=== PATIENT | male | born 1950 | race African-American/Black ===

== ENCOUNTER 2018-11-14 08:32 | Inpatient (IN) ==
[~2018-11-14 08:32] MED LIST: CEFUROXIME INJ 1,500 MG in SYRINGE 1 EACH IV ONE; DEXTROSE 50% 25 GM/50 ML VIAL IV PRN; GLUCAGON 1 MG VIAL IM PRN; SODIUM CHLORIDE 0.9% 1,000 ML IV SCH; ZALEPLON 5 MG CAPSULE PO PRN
[2018-11-14] MEDS ORDERED: CHLORHEXIDINE 0.12% ORAL RINSE 60 ML BOTTLE SWISH/SPIT SCH (09:00)
[2018-11-14] MEDS ORDERED: CHLORHEXIDINE 4% SOLN 118 ML BOTTLE TOP SCH (09:00)
[2018-11-14 09:48] LABS: Basophils % 0.6 % (0.0-0.8); Eosinophils # 0.2 10*3/uL (0.0-0.87); Eosinophils % 4.3 % (0.00-10.9); Hematocrit 38.4 VOL% (42.0-52.0); Hemoglobin 11.9 GM/DL (14.0-18.0); Immature Granulocytes % 0.2 %; Immature Granulocytes Absolute 0.01 #; Lymphocytes # 1.4 10*3/uL (1.4-4.0); Lymphocytes % 26.7 % (21.2-54.2); Mean Corpuscular Volume 73.7 FL (87-102); Mean Platelet Volume 11.2 FL (9.6-12.0); Monocytes % 10.6 % (1.7-12.7); Neutrophils % 57.6 % (38.7-73.9); Platelet Count 224 T/CUMM (130-400); Red Blood Count 5.21 MC/CUMM (3.8-5.5); Red Cell Distribution Width 15.9 % (9.3-17.3); White Blood Count 5.4 T/CUMM (4-12)
[2018-11-14 10:05] LABS: Albumin 3.7 G/DL (3.4-5.0); Bilirubin,Total 0.4 MG/DL (0.2-1.0); Calcium 8.9 MG/DL (8.5-10.1); Osmolality,Calculated 285.3 MOS/KG (273-304); Total Protein 7.5 G/DL (6.4-8.3)
[2018-11-14 11:07] LABS: ABG Base Excess 0.6 MMOL/L (-2.5-2.5); ABG Oxygen Saturation 96.3 % (95-100); ABG PCO2 34.3 MM HG (35-48); ABG PH 7.462 (7.35-7.45); ABG PO2 93.8 MM HG (80-95)
[2018-11-14] MEDS: CHLORHEXIDINE 0.12% ORAL RINSE 60 ML BOTTLE SWISH/SPIT SCH ×2 (14:48→21:15)
[2018-11-14] MEDS: CHLORHEXIDINE 4% SOLN 118 ML BOTTLE TOP SCH ×2 (14:48→21:15)
[2018-11-15] MEDS ORDERED: PAPAVERINE 60 MG/2 ML VIAL ONE (04:24)
[2018-11-15] MEDS ORDERED: VANCOMYCIN 1,000 MG VIAL ONE (04:24)
[2018-11-15] MEDS: CHLORHEXIDINE 4% SOLN 118 ML BOTTLE TOP SCH ×2 (04:37→09:41)
[2018-11-15] MEDS ORDERED: SODIUM CHLORIDE 0.9% 1,000 ML IV SCH (05:00)
[2018-11-15] MEDS ORDERED: DOBUTamine 0 MG/0 ML PREMIX IV ONE (05:45)
[2018-11-15] MEDS ORDERED: HEPARIN/NACL 0.9% 2 UNITS/ML 500 ML IV ONE (05:45)
[2018-11-15] MEDS ORDERED: ALBUMIN 5% 12.5 GM/250 ML VIAL IV ONE ×2 (05:45→08:56)
[2018-11-15] MEDS ORDERED: EPINEPHrine 1 MG/ML VIAL ONE (05:46)
[2018-11-15] MEDS ORDERED: MIDAZOLAM 10 MG/2 ML VIAL ONE (05:46)
[2018-11-15] MEDS ORDERED: LORazepam 1 MG TABLET PO ONE (06:00)
[2018-11-15] MEDS ORDERED: ePHEDrine 50 MG/ML AMP ONE (06:15)
[2018-11-15] MEDS ORDERED: FAMOTIDINE 20 MG/2 ML VIAL IV ONE (06:46)
[2018-11-15] MEDS ORDERED: diphenhydrAMINE 50 MG/1 ML VIAL ONE (06:46)
[2018-11-15 07:35] LABS: ABG Base Excess -1.3 MMOL/L (-2.5-2.5); ABG HCO3 24.3 MMOL/L (20-26); ABG PCO2 44.3 MM HG (35-48); ABG PH 7.357 (7.35-7.45); ABG PO2 184.1 MM HG (80-95); ABG TCO2 25.7 MMOL/L (23-27); Glucose Heart Surgery 147 MG/DL (74-106); Hemoglobin Heart Surgery 12.3 G/DL (14.0-18.0); Ionized Calcium Arterial 1.18 MMOL/L (1.21-1.46); PCO2 Patient Temp Arterial 44.3 MMHG; PH Patient Temp Arterial 7.357; PO2 Patient Temp Arterial 184.1 MM HG; Patient Temperature 37 CELCIUS; Potassium Heart/CVR 3.6 MMOL/L (3.5-5.1); Sodium Heart/CVR 139 MMOL/L (135-145)
[2018-11-15 08:04] LABS: Apearance,Urine CLEAR (Clear); Bilirubin,Urine Negative (Negative); Blood, Urine Small mg/dL (Negative); Glucose,Urine (UA) Negative (Negative); Ketones,Urine Negative (Negative); Mucus,Urine Occasional /LPF (Occasional); Nitrite,Urine Negative (Negative); Protein,Urine Negative; RBC,Urine 1 /HPF (0-4); Urine Color Yellow (Yellow); Urine Specific Gravity 1.015 (1.001-1.035); Urine Urobilinogen < 2.0 EU/DL (0.2-1.0)
[2018-11-15] MEDS ORDERED: PHENYLEPHRINE DRIP 40 MG/250 ML PREMIX IV ONE (08:56)
[2018-11-15] MEDS ORDERED: POTASSIUM CHLORIDE RIDER 100 ML IV ONE ×2 (08:56→11:30)
[2018-11-15 09:39] LABS: Hemoglobin Heart Surgery 8.6 G/DL (14.0-18.0); PCO2 Patient Temp Venous 34.8 MM HG; PH Patient Temp Venous 7.442; PO2 Patient Temp Venous 44.9 MM HG; Potassium Heart/CVR 3.7 MMOL/L (3.5-5.1); VBG Base Excess -0.8 MEQ/L (0-4); VBG HCO3 23.9 MEQ/L (24-28); VBG Oxygen Saturation 81.3 %; VBG PCO2 39.7 MMHG (41-51); VBG PH 7.398; VBG PO2 55.3 MMHG (17-40)
[2018-11-15] MEDS: CEFUROXIME INJ 1,500 MG in SYRINGE 1 EACH IV ONE ×2 (09:41→13:15)
[2018-11-15] MEDS: CHLORHEXIDINE 0.12% ORAL RINSE 60 ML BOTTLE SWISH/SPIT SCH (09:41)
[2018-11-15 10:09] LABS: Hemoglobin Heart Surgery 8.6 G/DL (14.0-18.0); PCO2 Patient Temp Venous 31.2 MM HG; PH Patient Temp Venous 7.497; PO2 Patient Temp Venous 45.7 MM HG; Potassium Heart/CVR 3.8 MMOL/L (3.5-5.1); VBG Base Excess 0.5 MEQ/L (0-4); VBG HCO3 24.3 MEQ/L (24-28); VBG Oxygen Saturation 84.6 %; VBG PCO2 35.6 MMHG (41-51); VBG PH 7.452; VBG PO2 56.3 MMHG (17-40)
[2018-11-15 10:39] LABS: Hemoglobin Heart Surgery 9.2 G/DL (14.0-18.0); PH Patient Temp Venous 7.475; PO2 Patient Temp Venous 44.4 MM HG; Potassium Heart/CVR 3.9 MMOL/L (3.5-5.1); VBG Base Excess -1.8 MEQ/L (0-4); VBG HCO3 22.4 MEQ/L (24-28); VBG Oxygen Saturation 85.6 %; VBG PCO2 35.7 MMHG (41-51); VBG PH 7.416; VBG PO2 58.6 MMHG (17-40)
[2018-11-15 11:27] LABS: ABG Base Excess -1.5 MMOL/L (-2.5-2.5); ABG HCO3 23.1 MMOL/L (20-26); ABG Oxygen Saturation 98.2 % (95-100); ABG PCO2 39.8 MM HG (35-48); ABG PH 7.378 (7.35-7.45); ABG TCO2 21.7 MMOL/L (23-27); Glucose Heart Surgery 284 MG/DL (74-106); Hematocrit Heart Surgery 26.8 PERCENT (42-52); Hemoglobin Heart Surgery 8.6 G/DL (14.0-18.0); Ionized Calcium Arterial 1.14 MMOL/L (1.21-1.46); PCO2 Patient Temp Arterial 39.8 MMHG; PH Patient Temp Arterial 7.378; Patient Temperature 37 CELCIUS; Potassium Heart/CVR 3.8 MMOL/L (3.5-5.1); Sodium Heart/CVR 138 MMOL/L (135-145)
[2018-11-15] MEDS ORDERED: DEXTROSE 5% KCL 20 MEQ 20 MEQ/1,000 ML BAG IV ONE (11:29)
[2018-11-15] MEDS ORDERED: SODIUM BICARBONATE 50 MEQ/50 ML VIAL IV ONE (11:29)
[2018-11-15] MEDS ORDERED: MANNITOL 100 GM/500 ML BAG IV ONE (11:29)
[2018-11-15] MEDS ORDERED: MAGNESIUM SULFATE 5 GM/10 ML VIAL IV ONE (11:30)
[2018-11-15] MEDS ORDERED: HEPARIN 10,000 UNIT/10 ML VIAL ONE ×2 (11:30→12:35)
[2018-11-15] MEDS ORDERED: ALBUMIN 25% 25 GM/100 ML VIAL IV ONE (11:30)
[2018-11-15] MEDS ORDERED: FUROSEMIDE 20 MG/2 ML VIAL ONE (11:30)
[2018-11-15] MEDS ORDERED: methylPREDNISolone SOD SUC 1,000 MG/8 ML VIAL ONE (11:30)
[2018-11-15] MEDS ORDERED: PROTAMINE SULFATE 250 MG/25 ML VIAL IV ONE (11:30)
[2018-11-15] MEDS ORDERED: PROTAMINE SULFATE 50 MG/5 ML VIAL IV ONE ×3 (12:21→21:12)
[2018-11-15] MEDS ORDERED: CALCIUM CHLORIDE 1,000 MG/10 ML SYRINGE IV PRN (12:27)
[2018-11-15] MEDS ORDERED: MORPHINE 10 MG/1 ML VIAL IV PRN (12:27)
[2018-11-15] MEDS ORDERED: MAGNESIUM SULF RIDER 4 GM in PREMIX 1 EACH IV PRN (12:27)
[2018-11-15] MEDS ORDERED: MAGNESIUM SULF RIDER 2 GM in PREMIX 1 EACH IV PRN (12:27)
[2018-11-15] MEDS ORDERED: NITROPRUSSIDE 100 MG in DEXTROSE 5% 250 ML IV PRN (12:27)
[2018-11-15] MEDS ORDERED: ACETAMINOPHEN 650 MG SUPP RECTAL PRN (12:27)
[2018-11-15] MEDS ORDERED: PHENYLEPHRINE DRIP 40 MG/250 ML PREMIX IV PRN (12:27)
[2018-11-15] MEDS ORDERED: VECURONIUM 10 MG VIAL IV PRN ×2 (12:27)
[2018-11-15] MEDS ORDERED: DEXTROSE 50% 25 GM/50 ML VIAL IV PRN ×2 (12:27)
[2018-11-15] MEDS ORDERED: INSULIN REGULAR 100 UNIT/ML IV ONE (12:27)
[2018-11-15] MEDS ORDERED: MIDAZOLAM 10 MG/2 ML VIAL IV PRN (12:27)
[2018-11-15] MEDS ORDERED: ONDANSETRON 4 MG/2 ML VIAL IV PRN (12:27)
[2018-11-15] MEDS ORDERED: MIDAZOLAM 2 MG/2 ML VIAL IV PRN (12:27)
[2018-11-15] MEDS ORDERED: SODIUM CHLORIDE 0.45% 1,000 ML IV SCH ×2 (12:30)
[2018-11-15] MEDS ORDERED: CALCIUM CHLORIDE 1,000 MG/10 ML VIAL IV ONE (12:35)
[2018-11-15] MEDS ORDERED: SEVOFLURANE 1 UNIT/15 MINUTE INH ONE (12:35)
[2018-11-15] MEDS ORDERED: ESMOLOL 100 MG/10 ML VIAL IV ONE (12:36)
[2018-11-15] MEDS ORDERED: LACTATED RINGERS 1,000 ML IV ONE (12:36)
[2018-11-15] MEDS ORDERED: NITROGLYCERIN DRIP 50 MG/250 ML BOTTLE IV ONE (12:36)
[2018-11-15] MEDS ORDERED: SODIUM CHLORIDE 0.9% 250 ML IV ONE (12:36)
[2018-11-15] MEDS ORDERED: METOPROLOL TARTRATE 5 MG/5 ML VIAL IV ONE (12:36)
[2018-11-15] MEDS ORDERED: ALBUTEROL INHALER 8 GM INH ONE (12:36)
[2018-11-15] MEDS ORDERED: SODIUM CHLORIDE 0.9% 1,000 ML IV ONE (12:36)
[2018-11-15] MEDS ORDERED: PHENYLEPHRINE 10 MG/1 ML VIAL IV ONE (12:36)
[2018-11-15] MEDS ORDERED: AMINOCAPROIC ACID 5,000 MG/20 ML VIAL ONE (12:36)
[2018-11-15 13:17] LABS: ABG Base Excess -0.9 MMOL/L (-2.5-2.5); ABG HCO3 23.6 MMOL/L (20-26); ABG PCO2 43.4 MM HG (35-48); ABG PH 7.361 (7.35-7.45); ABG PO2 84.8 MM HG (80-95); ABG TCO2 22.6 MMOL/L (23-27); Glucose Heart Surgery 238 MG/DL (74-106); Hematocrit Heart Surgery 28.9 PERCENT (42-52); Hemoglobin Heart Surgery 9.3 G/DL (14.0-18.0); Potassium Heart/CVR 3.3 MMOL/L (3.5-5.1)
[2018-11-15 13:24] LABS: Basophils % 0.2 % (0.0-0.8); Eosinophils % 0.7 % (0.00-10.9); Hematocrit 29.1 VOL% (42.0-52.0); Immature Granulocytes % 0.5 %; Immature Granulocytes Absolute 0.03 #; Lymphocytes # 0.5 10*3/uL (1.4-4.0); Lymphocytes % 9.4 % (21.2-54.2); Mean Corpuscular HGB Conc 30.9 GM/DL (32-36); Mean Corpuscular Volume 72.8 FL (87-102); Mean Platelet Volume 10.7 FL (9.6-12.0); Neutrophils % 83.2 % (38.7-73.9); Platelet Count 174 T/CUMM (130-400); Red Cell Distribution Width 15.7 % (9.3-17.3); White Blood Count 5.6 T/CUMM (4-12)
[2018-11-15 13:37] LABS: CKMB % 4.8 %
[2018-11-15 13:39] LABS: INR 1.1; Partial Thromboplastin Time 25.2 SECS (0-40)
[2018-11-15 13:42] LABS: Albumin 3.6 G/DL (3.4-5.0); Bilirubin,Total 0.9 MG/DL (0.2-1.0); Calcium 9.2 MG/DL (8.5-10.1); Total Protein 6.6 G/DL (6.4-8.3)
[2018-11-15 13:45] LABS: Troponin I 4.3 NG/ML (0.00-0.045)
[2018-11-15 13:48] LABS: Band Neutrophils 1 % (0-10); Lymphocytes 15 % (20-55); Segmented Neutrophils 78 % (50-85); Total Cells Counted 100
[2018-11-15 13:49] LABS: Anisocytosis 1+; Elliptocytes Few; Microcytosis 1+
[2018-11-15 13:50] LABS: Platelet Estimate Normal; Poikilocytosis Slight; Schistocytes Slight
[2018-11-15] MEDS: KETOROLAC 30 MG/1 ML VIAL IV SCH ×3 (13:52→23:54)
[2018-11-15] MEDS: POTASSIUM CHLORIDE RIDER 20 MEQ in PREMIX 1 EACH IV PRN ×6 (13:57→22:43)
[2018-11-15] MEDS: INSULIN REGULAR DRIP 100 ML IV SCH ×2 (14:01→23:26)
[2018-11-15] MEDS: LACTATED RINGERS 1,000 ML IV PRN ×3 (14:22→17:10)
[2018-11-15 14:54] LABS: ABG HCO3 23.6 MMOL/L (20-26); ABG Oxygen Saturation 98.1 % (95-100); ABG PCO2 44.4 MM HG (35-48); ABG PH 7.353 (7.35-7.45); ABG TCO2 22.4 MMOL/L (23-27); Glucose Heart Surgery 233 MG/DL (74-106); Hematocrit Heart Surgery 32.1 PERCENT (42-52); Hemoglobin Heart Surgery 10.4 G/DL (14.0-18.0); Potassium Heart/CVR 3.7 MMOL/L (3.5-5.1)
[2018-11-15 16:12] LABS: ABG Base Excess -2.1 MMOL/L (-2.5-2.5); ABG HCO3 22.4 MMOL/L (20-26); ABG Oxygen Saturation 96.3 % (95-100); ABG PH 7.399 (7.35-7.45); ABG PO2 99.8 MM HG (80-95); ABG TCO2 23.5 MMOL/L (23-27); Glucose Heart Surgery 193 MG/DL (74-106); Hemoglobin Heart Surgery 10.8 G/DL (14.0-18.0); Potassium Heart/CVR 3.8 MMOL/L (3.5-5.1)
[2018-11-15] MEDS: ALBUMIN 5% 12.5 GM in PREMIX 1 EACH IV PRN ×4 (16:19→19:51)
[2018-11-15] MEDS: MORPHINE 4 MG/1 ML VIAL IV PRN (16:27)
[2018-11-15 18:09] LABS: ABG Base Excess -3.5 MMOL/L (-2.5-2.5); ABG HCO3 21.2 MMOL/L (20-26); ABG Oxygen Saturation 95.2 % (95-100); ABG PCO2 36.9 MM HG (35-48); ABG PH 7.377 (7.35-7.45); ABG PO2 90.3 MM HG (80-95); ABG TCO2 22.3 MMOL/L (23-27); Glucose Heart Surgery 168 MG/DL (74-106); Hemoglobin Heart Surgery 10.1 G/DL (14.0-18.0)
[2018-11-15] MEDS: INSULIN REGULAR 100 UNIT/ML IV PRN ×2 (19:21→21:28)
[2018-11-15] MEDS ORDERED: CEFUROXIME INJ 1,500 MG in SYRINGE 1 EACH IV SCH (20:24)
[2018-11-15] MEDS: LACTATED RINGERS 250 ML IV PRN ×2 (20:27→22:37)
[2018-11-15] MEDS ORDERED: CHLORHEXIDINE 0.12% ORAL RINSE 60 ML BOTTLE SWISH/SPIT SCH (21:00)
[2018-11-15 21:19] LABS: ABG Base Excess -3.6 MMOL/L (-2.5-2.5); ABG HCO3 21.4 MMOL/L (20-26); ABG Oxygen Saturation 96.6 % (95-100); ABG PCO2 36.1 MM HG (35-48); ABG PH 7.375 (7.35-7.45); ABG PO2 83.4 MM HG (80-95); ABG TCO2 19.4 MMOL/L (23-27); Glucose Heart Surgery 165 MG/DL (74-106); Hematocrit Heart Surgery 28.8 PERCENT (42-52); Hemoglobin Heart Surgery 9.3 G/DL (14.0-18.0); Potassium Heart/CVR 3.8 MMOL/L (3.5-5.1)
[2018-11-15 22:10] LABS: CKMB % 2.8 %
[2018-11-15 22:11] LABS: Troponin I 3.32 NG/ML (0.00-0.045)
[2018-11-15] MEDS: ALBUTEROL/IPRATROPIUM 3 ML NEB RESP TX SCH (22:27)
[2018-11-15 22:29] LABS: ABG Base Excess -2.9 MMOL/L (-2.5-2.5); ABG HCO3 21.9 MMOL/L (20-26); ABG Oxygen Saturation 96.7 % (95-100); ABG PCO2 35.8 MM HG (35-48); ABG PH 7.388 (7.35-7.45); ABG PO2 82.8 MM HG (80-95); ABG TCO2 19.8 MMOL/L (23-27); Glucose Heart Surgery 151 MG/DL (74-106); Hematocrit Heart Surgery 29.4 PERCENT (42-52); Hemoglobin Heart Surgery 9.5 G/DL (14.0-18.0); Potassium Heart/CVR 3.8 MMOL/L (3.5-5.1)
[2018-11-15 23:11] LABS: ABG Base Excess -2.1 MMOL/L (-2.5-2.5); ABG HCO3 22.7 MMOL/L (20-26); ABG Oxygen Saturation 97.2 % (95-100); ABG PCO2 37.2 MM HG (35-48); ABG PO2 88.6 MM HG (80-95); ABG TCO2 20.4 MMOL/L (23-27); Glucose Heart Surgery 137 MG/DL (74-106); Hematocrit Heart Surgery 31.4 PERCENT (42-52); Hemoglobin Heart Surgery 10.2 G/DL (14.0-18.0); Potassium Heart/CVR 4.1 MMOL/L (3.5-5.1)
[2018-11-15] MEDS: POTASSIUM CHLORIDE RIDER 10 MEQ in PREMIX 1 EACH IV PRN (23:19)
[2018-11-16] MEDS ORDERED: FUROSEMIDE 40 MG/4 ML VIAL IV ONE
[2018-11-16 00:34] LABS: ABG Base Excess -1.4 MMOL/L (-2.5-2.5); ABG HCO3 23.2 MMOL/L (20-26); ABG Oxygen Saturation 96.5 % (95-100); ABG PCO2 36.9 MM HG (35-48); ABG PH 7.403 (7.35-7.45); ABG PO2 81.9 MM HG (80-95); ABG TCO2 20.8 MMOL/L (23-27); Glucose Heart Surgery 109 MG/DL (74-106); Hematocrit Heart Surgery 31.7 PERCENT (42-52); Hemoglobin Heart Surgery 10.3 G/DL (14.0-18.0); Potassium Heart/CVR 3.8 MMOL/L (3.5-5.1)
[2018-11-16 01:43] LABS: ABG Base Excess -1.7 MMOL/L (-2.5-2.5); ABG Oxygen Saturation 96.2 % (95-100); ABG PCO2 36.5 MM HG (35-48); ABG PH 7.401 (7.35-7.45); ABG PO2 79.1 MM HG (80-95); ABG TCO2 20.5 MMOL/L (23-27); Glucose Heart Surgery 101 MG/DL (74-106); Hematocrit Heart Surgery 32.2 PERCENT (42-52); Hemoglobin Heart Surgery 10.4 G/DL (14.0-18.0); Potassium Heart/CVR 3.8 MMOL/L (3.5-5.1)
[2018-11-16] MEDS: POTASSIUM CHLORIDE RIDER 10 MEQ in PREMIX 1 EACH IV PRN ×2 (02:05→02:37)
[2018-11-16] MEDS: POTASSIUM CHLORIDE RIDER 20 MEQ in PREMIX 1 EACH IV PRN ×3 (02:07→06:19)
[2018-11-16 04:05] LABS: ABG Base Excess 0.3 MMOL/L (-2.5-2.5); ABG HCO3 24.7 MMOL/L (20-26); ABG Oxygen Saturation 96.9 % (95-100); ABG PCO2 38.2 MM HG (35-48); ABG PH 7.417 (7.35-7.45); ABG PO2 83.6 MM HG (80-95); ABG TCO2 22.2 MMOL/L (23-27); Glucose Heart Surgery 93 MG/DL (74-106); Hematocrit Heart Surgery 32.3 PERCENT (42-52); Hemoglobin Heart Surgery 10.5 G/DL (14.0-18.0); Potassium Heart/CVR 4.1 MMOL/L (3.5-5.1)
[2018-11-16 04:14] LABS: Basophils % 0.2 % (0.0-0.8); Hematocrit 31.8 VOL% (42.0-52.0); Hemoglobin 10.1 GM/DL (14.0-18.0); Immature Granulocytes % 0.5 %; Immature Granulocytes Absolute 0.05 #; Lymphocytes # 0.5 10*3/uL (1.4-4.0); Lymphocytes % 4.9 % (21.2-54.2); Mean Corpuscular HGB Conc 31.8 GM/DL (32-36); Mean Corpuscular Volume 73.6 FL (87-102); Mean Platelet Volume 10.5 FL (9.6-12.0); Monocytes % 7.2 % (1.7-12.7); Neutrophils % 87.2 % (38.7-73.9); Platelet Count 157 T/CUMM (130-400); Red Blood Count 4.32 MC/CUMM (3.8-5.5); Red Cell Distribution Width 16.4 % (9.3-17.3); White Blood Count 9.4 T/CUMM (4-12)
[2018-11-16 04:34] LABS: CKMB % 1.9 %
[2018-11-16 04:41] LABS: Troponin I 2.82 NG/ML (0.00-0.045)
[2018-11-16 04:44] LABS: Albumin 3.8 G/DL (3.4-5.0); Bilirubin,Direct 0.14 MG/DL (0.0-0.20); Bilirubin,Total 0.6 MG/DL (0.2-1.0); Calcium 8.7 MG/DL (8.5-10.1); Lymphocytes 11 % (20-55); Nucleated Red Blood Cells 1 (0-5); Platelet Estimate Decreased; Polychromasia Few; Segmented Neutrophils 85 % (50-85); Total Cells Counted 100
[2018-11-16 04:45] LABS: Hypochromasia Slight
[2018-11-16] MEDS: KETOROLAC 30 MG/1 ML VIAL IV SCH ×4 (06:06→18:55)
[2018-11-16] MEDS: ALBUTEROL/IPRATROPIUM 3 ML NEB RESP TX SCH ×2 (07:30)
[2018-11-16] MEDS: MORPHINE 4 MG/1 ML VIAL IV PRN (07:55)
[2018-11-16] MEDS ORDERED: ALUMINUM/MAGNES/SIMETH MAX STR 30 ML UDCUP PO PRN (08:05)
[2018-11-16] MEDS ORDERED: DEXTROSE 50% 25 GM/50 ML VIAL IV PRN ×2 (08:05)
[2018-11-16] MEDS ORDERED: MAGNESIUM SULF RIDER 2 GM in PREMIX 1 EACH IV PRN (08:05)
[2018-11-16] MEDS ORDERED: ACETAMINOPHEN 325 MG TABLET PO PRN (08:05)
[2018-11-16] MEDS ORDERED: MAGNESIUM SULF RIDER 4 GM in PREMIX 1 EACH IV PRN (08:05)
[2018-11-16] MEDS ORDERED: MAGNESIUM HYDROXIDE SUSP 30 ML UDCUP PO PRN (08:05)
[2018-11-16] MEDS ORDERED: MORPHINE 4 MG/1 ML VIAL IV PRN (08:05)
[2018-11-16] MEDS ORDERED: GLUCAGON 1 MG VIAL IM PRN ×2 (08:05)
[2018-11-16] MEDS: ATORVASTATIN 20 MG TABLET PO SCH (08:36)
[2018-11-16] MEDS: DOCUSATE SODIUM 100 MG CAPSULE PO SCH (08:36)
[2018-11-16] MEDS: amLODIPine 10 MG TABLET PO SCH (08:36)
[2018-11-16] MEDS: FERROUS SULFATE 325 MG TABLET PO SCH (08:37)
[2018-11-16] MEDS: hydroCHLOROthiazide 12.5 MG CAPSULE PO SCH (08:37)
[2018-11-16] MEDS: PANTOPRAZOLE 40 MG TABLET PO SCH (08:37)
[2018-11-16] MEDS: metFORMIN 500 MG TABLET PO SCH ×2 (08:37→20:42)
[2018-11-16] MEDS: GLIMEPIRIDE 4 MG TABLET PO SCH (08:37)
[2018-11-16] MEDS: ASPIRIN EC 81 MG TABLET PO SCH (08:37)
[2018-11-16] MEDS: LISINOPRIL 10 MG TABLET PO SCH (08:37)
[2018-11-16] MEDS: CHLORHEXIDINE 0.12% ORAL RINSE 60 ML BOTTLE SWISH/SPIT SCH ×2 (08:49→20:43)
[2018-11-16] MEDS: SODIUM CHLOR 0.45% KCL 20 MEQ 20 MEQ/1,000 ML BAG IV SCH (09:02)
[2018-11-16] MEDS ORDERED: INSULIN REGULAR 100 UNIT/ML SUBCUT SCH (11:25)
[2018-11-16] MEDS: INSULIN REGULAR 100 UNIT/ML SUBCUT SCH ×3 (12:09→20:43)
[2018-11-16] MEDS: CETIRIZINE 10 MG TABLET PO PRN (20:41)
[2018-11-16] MEDS: ZALEPLON 5 MG CAPSULE PO PRN (20:43)
[2018-11-16] MEDS: oxyCODONE/ACETAMINOPHEN 5-325 MG TABLET PO PRN (20:43)
[2018-11-17] MEDS: INSULIN REGULAR 100 UNIT/ML SUBCUT SCH ×5 (00:47→22:19)
[2018-11-17] MEDS: KETOROLAC 30 MG/1 ML VIAL IV SCH ×4 (01:03→18:30)
[2018-11-17 05:27] LABS: Hematocrit 29.7 VOL% (42.0-52.0); Hemoglobin 9.5 GM/DL (14.0-18.0); Immature Granulocytes % 0.6 %; Immature Granulocytes Absolute 0.06 #; Lymphocytes # 0.9 10*3/uL (1.4-4.0); Lymphocytes % 9.1 % (21.2-54.2); Mean Corpuscular Volume 73.5 FL (87-102); Mean Platelet Volume 12.4 FL (9.6-12.0); Monocytes % 10.6 % (1.7-12.7); Neutrophils % 79.7 % (38.7-73.9); Platelet Count 149 T/CUMM (130-400); Red Blood Count 4.04 MC/CUMM (3.8-5.5); Red Cell Distribution Width 17.2 % (9.3-17.3); White Blood Count 10.1 T/CUMM (4-12)
[2018-11-17] MEDS ORDERED: FUROSEMIDE 40 MG/4 ML VIAL IV ONE (06:00)
[2018-11-17 06:01] LABS: Band Neutrophils 3 % (0-10); Lymphocytes 8 % (20-55); Platelet Estimate Adequate; Segmented Neutrophils 79 % (50-85); Total Cells Counted 100
[2018-11-17 06:11] LABS: Alanine Aminotransferase 19 U/L (16-61); Albumin 3.5 G/DL (3.4-5.0); Alkaline Phosphatase 53 U/L (45-117); Aspartate Amino Transferase 27 U/L (0-37); Bilirubin,Indirect 0.3 MG/DL (0.0-1.0); Blood Urea Nitrogen 33 MG/DL (7-18); Calcium 8.5 MG/DL (8.5-10.1); Glucose 199 MG/DL (74-106); Osmolality,Calculated 298.8 MOS/KG (273-304); Total Protein 6.5 G/DL (6.4-8.3)
[2018-11-17] MEDS: metFORMIN 500 MG TABLET PO SCH ×2 (09:57→21:39)
[2018-11-17] MEDS: GLIMEPIRIDE 4 MG TABLET PO SCH (09:57)
[2018-11-17] MEDS: CETIRIZINE 10 MG TABLET PO PRN (09:57)
[2018-11-17] MEDS: hydroCHLOROthiazide 12.5 MG CAPSULE PO SCH (09:57)
[2018-11-17] MEDS: ASPIRIN EC 81 MG TABLET PO SCH (09:57)
[2018-11-17] MEDS: amLODIPine 10 MG TABLET PO SCH (09:58)
[2018-11-17] MEDS: LISINOPRIL 10 MG TABLET PO SCH (09:58)
[2018-11-17] MEDS: ATORVASTATIN 20 MG TABLET PO SCH (09:58)
[2018-11-17] MEDS: PANTOPRAZOLE 40 MG TABLET PO SCH (09:58)
[2018-11-17] MEDS: FERROUS SULFATE 325 MG TABLET PO SCH (09:58)
[2018-11-17] MEDS: DOCUSATE SODIUM 100 MG CAPSULE PO SCH (09:59)
[2018-11-17] MEDS: SODIUM CHLOR 0.45% KCL 20 MEQ 20 MEQ/1,000 ML BAG IV SCH (10:00)
[2018-11-17] MEDS: CHLORHEXIDINE 0.12% ORAL RINSE 60 ML BOTTLE SWISH/SPIT SCH ×2 (10:00→21:39)
[2018-11-17] MEDS: oxyCODONE/ACETAMINOPHEN 5-325 MG TABLET PO PRN (18:33)
[2018-11-17] MEDS ORDERED: AMIODARONE INJ 150 MG in DEXTROSE 5% 100 ML IV ONE (19:19)
[2018-11-17] MEDS ORDERED: DILTIAZEM 50 MG/10 ML VIAL IV ONE (19:21)
[2018-11-17] MEDS ORDERED: dilTIAZem Drip 125 MG/125 ML PREMIX IV ONE (19:26)
[2018-11-17] MEDS ORDERED: AMIODARONE 150 MG/3 ML VIAL ONE (19:27)
[2018-11-17] MEDS ORDERED: AMIODARONE 450 MG/9 ML VIAL IV ONE (19:28)
[2018-11-17] MEDS ORDERED: AMIODARONE INJ 450 MG in DEXTROSE 5% 241 ML IV SCH (19:30)
[2018-11-18] MEDS: KETOROLAC 30 MG/1 ML VIAL IV SCH ×4 (00:15→17:43)
[2018-11-18] MEDS: oxyCODONE/ACETAMINOPHEN 5-325 MG TABLET PO PRN (01:36)
[2018-11-18] MEDS ORDERED: AMIODARONE 450 MG/9 ML VIAL IV ONE (03:16)
[2018-11-18] MEDS ORDERED: AMIODARONE INJ 450 MG in DEXTROSE 5% 241 ML IV SCH (04:00)
[2018-11-18 06:03] LABS: Basophils % 0.2 % (0.0-0.8); Eosinophils # 0.2 10*3/uL (0.0-0.87); Eosinophils % 2.3 % (0.00-10.9); Hematocrit 30.8 VOL% (42.0-52.0); Hemoglobin 9.7 GM/DL (14.0-18.0); Immature Granulocytes % 0.6 %; Immature Granulocytes Absolute 0.05 #; Lymphocytes # 1.8 10*3/uL (1.4-4.0); Lymphocytes % 21.3 % (21.2-54.2); Mean Corpuscular HGB Conc 31.5 GM/DL (32-36); Mean Corpuscular Volume 74.4 FL (87-102); Mean Platelet Volume 11.5 FL (9.6-12.0); Monocytes % 9.3 % (1.7-12.7); Neutrophils % 66.3 % (38.7-73.9); Platelet Count 132 T/CUMM (130-400); Red Blood Count 4.14 MC/CUMM (3.8-5.5); White Blood Count 8.4 T/CUMM (4-12)
[2018-11-18 06:22] LABS: Hypochromasia 1+; Ovalocytes Slight; Platelet Estimate Normal
[2018-11-18 06:26] LABS: Alanine Aminotransferase 18 U/L (16-61); Albumin 3.2 G/DL (3.4-5.0); Alkaline Phosphatase 59 U/L (45-117); Aspartate Amino Transferase 18 U/L (0-37); Bilirubin,Indirect 0.3 MG/DL (0.0-1.0); Blood Urea Nitrogen 34 MG/DL (7-18); Calcium 8.5 MG/DL (8.5-10.1); Glucose 106 MG/DL (74-106); Total Protein 6.6 G/DL (6.4-8.3)
[2018-11-18] MEDS: INSULIN REGULAR 100 UNIT/ML SUBCUT SCH ×3 (08:20→16:00)
[2018-11-18] MEDS: POTASSIUM CHLORIDE 20 MEQ TABLET PO PRN ×2 (08:30→09:40)
[2018-11-18] MEDS: ASPIRIN EC 81 MG TABLET PO SCH (09:38)
[2018-11-18] MEDS: metFORMIN 500 MG TABLET PO SCH ×2 (09:38→21:08)
[2018-11-18] MEDS: amLODIPine 10 MG TABLET PO SCH (09:38)
[2018-11-18] MEDS: PANTOPRAZOLE 40 MG TABLET PO SCH (09:38)
[2018-11-18] MEDS: DOCUSATE SODIUM 100 MG CAPSULE PO SCH (09:38)
[2018-11-18] MEDS: CETIRIZINE 10 MG TABLET PO PRN (09:39)
[2018-11-18] MEDS: GLIMEPIRIDE 4 MG TABLET PO SCH (09:39)
[2018-11-18] MEDS: FERROUS SULFATE 325 MG TABLET PO SCH (09:39)
[2018-11-18] MEDS: hydroCHLOROthiazide 12.5 MG CAPSULE PO SCH (09:39)
[2018-11-18] MEDS: ATORVASTATIN 20 MG TABLET PO SCH (09:39)
[2018-11-18] MEDS: LISINOPRIL 10 MG TABLET PO SCH (09:40)
[2018-11-18] MEDS: CHLORHEXIDINE 0.12% ORAL RINSE 60 ML BOTTLE SWISH/SPIT SCH ×2 (09:40→21:12)
[2018-11-18] MEDS: AMIODARONE 200 MG TABLET PO SCH ×2 (15:01→21:08)
[2018-11-19] MEDS: KETOROLAC 30 MG/1 ML VIAL IV SCH ×2 (00:35→05:55)
[2018-11-19] MEDS: INSULIN REGULAR 100 UNIT/ML SUBCUT SCH ×5 (00:40→21:50)
[2018-11-19] MEDS: LISINOPRIL 10 MG TABLET PO SCH (09:44)
[2018-11-19] MEDS: ASPIRIN EC 81 MG TABLET PO SCH (09:44)
[2018-11-19] MEDS: FERROUS SULFATE 325 MG TABLET PO SCH (09:44)
[2018-11-19] MEDS: metFORMIN 500 MG TABLET PO SCH ×2 (09:44→21:44)
[2018-11-19] MEDS: ATORVASTATIN 20 MG TABLET PO SCH (09:45)
[2018-11-19] MEDS: DOCUSATE SODIUM 100 MG CAPSULE PO SCH (09:45)
[2018-11-19] MEDS: GLIMEPIRIDE 4 MG TABLET PO SCH (09:45)
[2018-11-19] MEDS: PANTOPRAZOLE 40 MG TABLET PO SCH (09:45)
[2018-11-19] MEDS: hydroCHLOROthiazide 12.5 MG CAPSULE PO SCH (09:45)
[2018-11-19] MEDS: amLODIPine 10 MG TABLET PO SCH (09:45)
[2018-11-19] MEDS: AMIODARONE 200 MG TABLET PO SCH ×2 (09:45→21:44)
[2018-11-19] MEDS: CHLORHEXIDINE 0.12% ORAL RINSE 60 ML BOTTLE SWISH/SPIT SCH ×2 (09:49→21:44)
[2018-11-19] MEDS: LACTULOSE 20 GM/30 ML UDCUP PO PRN (13:12)
[2018-11-19] MEDS: oxyCODONE/ACETAMINOPHEN 5-325 MG TABLET PO PRN ×2 (13:12→21:47)
[2018-11-19] MEDS: ZALEPLON 5 MG CAPSULE PO PRN (21:47)
[2018-11-20 05:53] LABS: Basophils % 0.3 % (0.0-0.8); Eosinophils # 0.3 10*3/uL (0.0-0.87); Eosinophils % 3.8 % (0.00-10.9); Hematocrit 34.3 VOL% (42.0-52.0); Hemoglobin 10.7 GM/DL (14.0-18.0); Immature Granulocytes % 0.4 %; Immature Granulocytes Absolute 0.03 #; Lymphocytes # 1.1 10*3/uL (1.4-4.0); Lymphocytes % 14.8 % (21.2-54.2); Mean Corpuscular HGB Conc 31.2 GM/DL (32-36); Mean Corpuscular Volume 74.6 FL (87-102); Mean Platelet Volume 11.6 FL (9.6-12.0); Monocytes % 7.8 % (1.7-12.7); Neutrophils % 72.9 % (38.7-73.9); Platelet Count 196 T/CUMM (130-400); Red Cell Distribution Width 16.6 % (9.3-17.3); White Blood Count 7.4 T/CUMM (4-12)
[2018-11-20 06:26] LABS: Alanine Aminotransferase 23 U/L (16-61); Albumin 3.1 G/DL (3.4-5.0); Alkaline Phosphatase 66 U/L (45-117); Aspartate Amino Transferase 17 U/L (0-37); Bilirubin,Indirect 0.4 MG/DL (0.0-1.0); Blood Urea Nitrogen 23 MG/DL (7-18); Glucose 140 MG/DL (74-106); Osmolality,Calculated 288.1 MOS/KG (273-304); Troponin I 0.245 NG/ML (0.00-0.045)
[2018-11-20] MEDS: INSULIN REGULAR 100 UNIT/ML SUBCUT SCH ×4 (08:49→22:39)
[2018-11-20] MEDS: LISINOPRIL 10 MG TABLET PO SCH (09:11)
[2018-11-20] MEDS: metFORMIN 500 MG TABLET PO SCH ×2 (09:12→22:38)
[2018-11-20] MEDS: hydroCHLOROthiazide 12.5 MG CAPSULE PO SCH (09:12)
[2018-11-20] MEDS: ATORVASTATIN 20 MG TABLET PO SCH (09:13)
[2018-11-20] MEDS: ASPIRIN EC 81 MG TABLET PO SCH (09:13)
[2018-11-20] MEDS: amLODIPine 10 MG TABLET PO SCH (09:13)
[2018-11-20] MEDS: DOCUSATE SODIUM 100 MG CAPSULE PO SCH (09:13)
[2018-11-20] MEDS: AMIODARONE 200 MG TABLET PO SCH ×2 (09:14→22:38)
[2018-11-20] MEDS: PANTOPRAZOLE 40 MG TABLET PO SCH (09:14)
[2018-11-20] MEDS: FERROUS SULFATE 325 MG TABLET PO SCH (09:14)
[2018-11-20] MEDS: GLIMEPIRIDE 4 MG TABLET PO SCH (09:14)
[2018-11-20] MEDS: CHLORHEXIDINE 0.12% ORAL RINSE 60 ML BOTTLE SWISH/SPIT SCH ×2 (11:40→22:39)
[2018-11-20] MEDS: ONDANSETRON 4 MG/2 ML VIAL IV PRN (13:30)
[2018-11-20] MEDS: oxyCODONE/ACETAMINOPHEN 5-325 MG TABLET PO PRN (22:38)
[2018-11-20] MEDS: ZALEPLON 5 MG CAPSULE PO PRN (22:38)
[2018-11-21 05:30] LABS: Basophils % 0.3 % (0.0-0.8); Eosinophils # 0.3 10*3/uL (0.0-0.87); Eosinophils % 4.6 % (0.00-10.9); Hematocrit 34.1 VOL% (42.0-52.0); Hemoglobin 10.4 GM/DL (14.0-18.0); Immature Granulocytes % 0.5 %; Immature Granulocytes Absolute 0.04 #; Lymphocytes # 1.9 10*3/uL (1.4-4.0); Lymphocytes % 25.3 % (21.2-54.2); Mean Corpuscular HGB Conc 30.5 GM/DL (32-36); Mean Corpuscular Volume 74.8 FL (87-102); Mean Platelet Volume 11.1 FL (9.6-12.0); Monocytes % 11.7 % (1.7-12.7); Neutrophils % 57.6 % (38.7-73.9); Platelet Count 214 T/CUMM (130-400); Red Blood Count 4.56 MC/CUMM (3.8-5.5); Red Cell Distribution Width 16.6 % (9.3-17.3); White Blood Count 7.4 T/CUMM (4-12)
[2018-11-21 06:11] LABS: Alanine Aminotransferase 21 U/L (16-61); Alkaline Phosphatase 63 U/L (45-117); Aspartate Amino Transferase 14 U/L (0-37); Bilirubin,Direct < 0.100 MG/DL (0.0-0.20); Bilirubin,Indirect 0.4 MG/DL (0.0-1.0); Blood Urea Nitrogen 20 MG/DL (7-18); Calcium 8.8 MG/DL (8.5-10.1); Glucose 69 MG/DL (74-106); Osmolality,Calculated 279.4 MOS/KG (273-304); Total Protein 6.6 G/DL (6.4-8.3)
[2018-11-21 06:14] LABS: Troponin I 0.156 NG/ML (0.00-0.045)
[2018-11-21] MEDS: LISINOPRIL 10 MG TABLET PO SCH (09:22)
[2018-11-21] MEDS: ATORVASTATIN 20 MG TABLET PO SCH (09:23)
[2018-11-21] MEDS: AMIODARONE 200 MG TABLET PO SCH ×2 (09:23→21:34)
[2018-11-21] MEDS: metFORMIN 500 MG TABLET PO SCH ×2 (09:23→21:34)
[2018-11-21] MEDS: hydroCHLOROthiazide 12.5 MG CAPSULE PO SCH (09:23)
[2018-11-21] MEDS: FERROUS SULFATE 325 MG TABLET PO SCH (09:23)
[2018-11-21] MEDS: ASPIRIN EC 81 MG TABLET PO SCH (09:23)
[2018-11-21] MEDS: GLIMEPIRIDE 4 MG TABLET PO SCH (09:23)
[2018-11-21] MEDS: DOCUSATE SODIUM 100 MG CAPSULE PO SCH (09:24)
[2018-11-21] MEDS: PANTOPRAZOLE 40 MG TABLET PO SCH (09:24)
[2018-11-21] MEDS: CHLORHEXIDINE 0.12% ORAL RINSE 60 ML BOTTLE SWISH/SPIT SCH ×2 (09:24→21:35)
[2018-11-21] MEDS: amLODIPine 10 MG TABLET PO SCH (09:24)
[2018-11-21] MEDS: INSULIN REGULAR 100 UNIT/ML SUBCUT SCH ×4 (09:28→21:34)
[2018-11-21] MEDS: ONDANSETRON 4 MG/2 ML VIAL IV PRN (13:14)
[2018-11-21] MEDS: LACTULOSE 20 GM/30 ML UDCUP PO PRN (13:15)
[2018-11-21] MEDS: oxyCODONE/ACETAMINOPHEN 5-325 MG TABLET PO PRN (22:21)
[2018-11-22 08:41] VITALS: BP 155/94
[2018-11-22] MEDS: hydroCHLOROthiazide 12.5 MG CAPSULE PO SCH (09:01)
[2018-11-22] MEDS: AMIODARONE 200 MG TABLET PO SCH (09:01)
[2018-11-22] MEDS: metFORMIN 500 MG TABLET PO SCH (09:01)
[2018-11-22] MEDS: INSULIN REGULAR 100 UNIT/ML SUBCUT SCH (09:02)
[2018-11-22] MEDS: oxyCODONE/ACETAMINOPHEN 5-325 MG TABLET PO PRN (09:02)
[2018-11-22] MEDS: GLIMEPIRIDE 4 MG TABLET PO SCH (09:03)
[2018-11-22] MEDS: FERROUS SULFATE 325 MG TABLET PO SCH (09:03)
[2018-11-22] MEDS: amLODIPine 10 MG TABLET PO SCH (09:03)
[2018-11-22] MEDS: ASPIRIN EC 81 MG TABLET PO SCH (09:03)
[2018-11-22] MEDS: ATORVASTATIN 20 MG TABLET PO SCH (09:03)
[2018-11-22] MEDS: PANTOPRAZOLE 40 MG TABLET PO SCH (09:03)
[2018-11-22] MEDS: DOCUSATE SODIUM 100 MG CAPSULE PO SCH (09:03)
[2018-11-22] MEDS: LISINOPRIL 10 MG TABLET PO SCH (09:10)
[2018-11-22] MEDS: CHLORHEXIDINE 0.12% ORAL RINSE 60 ML BOTTLE SWISH/SPIT SCH (09:50)
== END 2018-11-22 10:13 | disposition home health service (06) | DRG 220 ==
LOC: N.TELEN 08:32 → N.CVR 11-15 09:45 → N.ICU 11-16 09:29 → N.TELES 11-16 12:29